=== PATIENT | male | born 1945 | race Caucasian/White ===

== ENCOUNTER 2023-05-12 11:25 | Outpatient (CLI) | payer BC, MEDICARE, OTHER ==
[2023-05-12 12:32] LABS: Hematocrit 41.9 % (38.8-50.0); Hemoglobin 14.3 g/dL (13.5-17.5); Mean Corpuscular HGB CONC 34.1 g/dL (32.0-36.0); Mean Corpuscular Hemoglobin 28.3 pg (27.0-33.0); Mean Platelet Volume 8.8 fl (7.4-10.4); Platelet Count 180 10x3/uL (150-450); Red Blood Cell (RBC) Count 5.05 10x6/uL (4.32-5.72)
[2023-05-12 12:44] LABS: Anion Gap 9 mmol/L (10-20); BUN (Urea Nitrogen) 18 mg/dL (8.4-25.7); Calc. Creatinine Clearance 0 mL/min (70-130); Calcium 9.3 mg/dL (7.8-10.44); Carbon Dioxide 28 mmol/L (23-31); Chloride 106 mmol/L (98-107); Estimated GFR 84; Glucose 108 mg/dL (83-110); Potassium 4.4 mmol/L (3.5-5.1); Sodium 139 mmol/L (136-145)
== END 2023-05-12 11:26 | disposition home or self-care (01) ==
LOC: CSHLAB 11:25
PROVIDERS: ATTEND Surgery
DX: Z01.818 Encounter for other preprocedural examination (principal); K64.4 Residual hemorrhoidal skin tags
CPT/HCPCS: 80048; 85027; 93005; 93010

== ENCOUNTER 2023-05-14 07:00 | Day surgery (SDC) | payer BC ==
[2023-05-12 12:08] VITALS: BMI 30.9
[2023-05-14] MEDS ORDERED: Lidocaine 2% 6 ML (Jelly) SYR ONE (07:06)
[2023-05-14] MEDS ORDERED: EPINEPHrine 1 MG/ML VIAL ONE (07:06)
[2023-05-14] MEDS ORDERED: Bupivacaine PF 0.5% 30 ML VIAL ONE (07:06)
[2023-05-14] MEDS ORDERED: Sevoflurane 250 ML INH ANEST BOTTLE ONE (07:15)
[2023-05-14] MEDS ORDERED: Lidocaine 1% PF 5 ML VIAL ONE (07:57)
[2023-05-14] MEDS ORDERED: PHENYLEPHRINE-NS 100 MCG/ML 10 ML SYRINGE ONE (07:57)
[2023-05-14] MEDS ORDERED: fentaNYL 50 mcg/mL 1 mL Vial ONE (07:57)
[2023-05-14] MEDS ORDERED: PROPOFOL 20 ML ONE (07:57)
[2023-05-14] MEDS ORDERED: ePHEDrine Sulfate 50 MG/10 ML VIAL ONE (07:57)
[2023-05-14] MEDS ORDERED: Ondansetron PF 4 MG/2 ML Vial ONE (07:57)
[2023-05-14] MEDS ORDERED: Dexamethasone 4 mg/ml Vial ONE (07:57)
[2023-05-14] MEDS ORDERED: Ketorolac Tromethamine 30 MG (1 mL) VIAL ONE (07:58)
[2023-05-14] MEDS ORDERED: ceFOXitin 1 GM VIAL ONE (08:21)
[2023-05-14] MEDS ORDERED: HYDROcodone/Acetaminophen 5/325 mg Tablet PO PRN ×2 (09:31)
[2023-05-14] MEDS ORDERED: Acetaminophen 325 MG TAB PO PRN (09:31)
== END 2023-05-14 11:19 | disposition home or self-care (01) ==
LOC: CSHSDC 07:00
PROVIDERS: ATTEND Surgery
PROC: 06BY0ZC Excision of Hemorrhoidal Plexus, Open Approach (ICD-10-PCS; principal; 2023-05-14)
DX: K64.4 Residual hemorrhoidal skin tags (principal); K64.8 Other hemorrhoids; Z87.891 Personal history of nicotine dependence; I10 Essential (primary) hypertension; E78.00 Pure hypercholesterolemia, unspecified; Z79.899 Other long term (current) drug therapy
CPT/HCPCS: 88304; J0171; J0665; J0694; J1100; J1885; J2405; J2704; J3010

== ENCOUNTER 2024-01-27 13:17 | Outpatient (CLI) | payer BC | END 2024-01-27 13:18 | disposition home or self-care (01) | LOC: CSHWCC 13:17 | PROVIDERS: ATTEND Nurse Practitioner Family | DX: S61.412D Laceration without foreign body of left hand, subsequent encounter (principal); I25.10 Atherosclerotic heart disease of native coronary artery without angina pectoris | CPT/HCPCS: 11042; 99213; G0463 ==

== ENCOUNTER 2024-02-03 09:00 | Outpatient (CLI) | payer BC | END 2024-02-03 09:01 | disposition home or self-care (01) | LOC: CSHWCC 09:00 | PROVIDERS: ATTEND Nurse Practitioner Family | DX: S61.412D Laceration without foreign body of left hand, subsequent encounter (principal); I25.10 Atherosclerotic heart disease of native coronary artery without angina pectoris | CPT/HCPCS: 11042 ==

== ENCOUNTER 2024-02-10 08:50 | Outpatient (CLI) | payer BC | END 2024-02-10 08:51 | disposition home or self-care (01) | LOC: CSHWCC 08:50 | PROVIDERS: ATTEND Nurse Practitioner Family | DX: S61.412A Laceration without foreign body of left hand, initial encounter (principal); I25.10 Atherosclerotic heart disease of native coronary artery without angina pectoris | CPT/HCPCS: 99212; G0463 ==